=== PATIENT | female | born 1965 | race Hispanic/Latino ===

== ENCOUNTER → 2020-01-17 | Outpatient (CLI) | payer OTHER | LOC: RAD 08:43 | PROVIDERS: ATTEND Internal Medicine | DX: R06.02 Shortness of breath (principal) | CPT/HCPCS: 71046 ==

== ENCOUNTER → 2020-03-09 | Outpatient (CLI) | payer OTHER ==
--- NOTE | 2020-03-09 16:22 | Diagnostic Imaging Report ---
EXAM: CT CHEST WITHOUT CONTRAST CLINICAL INDICATION: Interstitial lung disease. Shortness of breath. TECHNIQUE: CT chest was performed, without IV contrast, as per department protocol. Axial, sagittal, and coronal reconstructions were obtained. IV CONTRAST: Not administered, limiting sensitivity of this exam for evaluation of mediastinum/melinda, vascular structures, and solid organs. RADIATION DOSE REDUCTION: This exam was performed according to the departmental dose-optimization program which includes automated exposure control, adjustment of the mA and/or kV according to patient size and/or use of iterative reconstruction technique. COMPARISON: Chest x-ray on 01/17/2020 FINDINGS: LOWER NECK: No pathologic process in imaged portion of lower neck. PULMONARY PARENCHYMA AND AIRWAYS: The central airways are unremarkable. The segmental higher order bronchi show central and right bronchiectasis, most noticeable in the upper lobe on each side. This could be traction bronchiectasis. There is also bronchial wall thickening. Peribronchial thickening and psychiatric transition with volume loss and upward hilar retraction. There is presence of a 2.6 cm left apical air-containing cyst with no mural nodularity. The intervening lung parenchyma has high density, focal areas of groundglass opacity and multiple tiny nodules most pronounced in the right upper lobe. The findings are consistent with an upper lobe dominant chronic pulmonary parenchymal interstitial disease. A superimposed acute process is not entirely ruled out. The disease also involves the lower lobes to a lesser degree. This is characterized by bronchiectasis, groundglass opacities and scarring is less pronounced. No large patch of the airspace consolidation is seen. MEDIASTINUM AND MELINDA: No pathologic process. HEART AND PERICARDIUM: Cardiomegaly. Coronary artery calcification. THORACIC VESSELS: Minimal atherosclerotic calcification of aorta and its branches. The arch branches are elongated and tortuous. PLEURAL SPACES: No pleural fluid, pleural thickening or pneumothorax. CHEST WALL AND AXILLA: No pathologic process. UPPER ABDOMEN: Hiatal hernia. MUSCULOSKELETAL: No pathologic process. ADDITIONAL FINDINGS: None. IMPRESSION: CT scan of the chest limited because of the lack of IV contrast. The findings are suggestive of an upper lobe dominant interstitial lung disease with bronchiectasis, bronchial inflammation, peribronchial scarring, parenchymal scarring, cyst formation and hilar retraction. A superimposed acute process is not entirely ruled out. Standardized Report: [id number]. Signed by: Luke Gardiner MD on 03/09/2020 4:18 PM
== END ==
LOC: CT 08:49
PROVIDERS: ATTEND Internal Medicine
DX: J84.170 Interstitial lung disease with progressive fibrotic phenotype in diseases classified elsewhere (principal)
CPT/HCPCS: 71250

== ENCOUNTER → 2020-06-29 | Outpatient (CLI) | payer OTHER | LOC: CT 15:45 | PROVIDERS: ATTEND Internal Medicine Critical Care Medicine | DX: J84.116 Cryptogenic organizing pneumonia (principal) | CPT/HCPCS: 71250 ==

== ENCOUNTER → 2021-05-31 | Outpatient (CLI) | payer OTHER | LOC: MAMMO 16:19 | PROVIDERS: ATTEND Internal Medicine | DX: Z12.31 Encounter for screening mammogram for malignant neoplasm of breast (principal); J41.0 Simple chronic bronchitis | CPT/HCPCS: 71046; 77067 ==

== ENCOUNTER → 2021-06-27 | Outpatient (CLI) | payer OTHER | LOC: MAMMO 08:22 | PROVIDERS: ATTEND Internal Medicine | DX: N60.02 Solitary cyst of left breast (principal) ==

== ENCOUNTER → 2021-09-13 | Outpatient (CLI) | payer OTHER | LOC: CT 10:41 | PROVIDERS: ATTEND Internal Medicine Critical Care Medicine | DX: J84.9 Interstitial pulmonary disease, unspecified (principal) | CPT/HCPCS: 71250 ==